=== PATIENT | male | born 1980 | race Caucasian/White ===

== ENCOUNTER 2017-06-06 18:25 | Emergency (ER) | payer BC ==
[2017-06-06] MEDS ORDERED: TORAdol 30 mg Injection IM ONE (19:10)
[2017-06-06] MEDS ORDERED: Norflex 100 MG Tablet PO ONE (19:10)
[2017-06-06] MEDS ORDERED: TORAdol 30 mg Injection ONE (19:15)
--- NOTE | 2017-06-06 19:16 | ERPHSYRPT ---
- History of Present Illness Time Seen by Provider: 06/06/17 19:04 Source: patient Patient Subjective Stated Complaint: PER PATIENT LIFTING HEAVY ITEMS AT WORK YESTERDAY NOW HAS MID LOWER BACK PAIN 4-10 NOW, PMS INTACT, AMBULATED TO ROOM WITH OUT DIFF Triage Nursing Assessment: PER PATIENT LIFTING HEAVY ITEMS AT WORK YESTERDAY NOW HAS MID LOWER BACK PAIN 4-10 NOW, PMS INTACT, AMBULATED TO ROOM WITH OUT DIFF, VSS, NO FEVER, AOX3 Physician History: CC: back pain Hx: 36 y/o patient of Dr Polo with low back pain. Started with helping brother move boxes yesterday. No hx of back problems. Pain radiates to legs and is rather severe. Used APAP and motrin without relief. No hx of CA. No fever or chills. Normal urination. Pain is positional. NKA. 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 Timing/Duration: yesterday Back Pain Location: lumbar spine Severity of Pain-Max: severe Severity of Pain-Current: severe Allergies/Adverse Reactions: No Known Drug Allergies Allergy (Verified 10/29/14 10:33) Home Medications: Hum Insulin NPH/Reg Insulin Hm [Novolin 70-30 100 Unit/ml Vial] 30 units DAILY 10/29/14 [History] Hx Tetanus, Diphtheria Vaccination/Date Given: Yes Hx Influenza Vaccination/Date Given: No Hx Pneumococcal Vaccination/Date Given: No - Review of Systems Constitutional: No Fever, No Chills Eyes: No Symptoms Ears, Nose, & Throat: No Symptoms Respiratory: No Cough, No Dyspnea Cardiac: No Chest Pain Abdominal/Gastrointestinal: No Abdominal Pain, No Nausea, No Vomiting Genitourinary Symptoms: No Dysuria Musculoskeletal: Back Pain Skin: No Rash Neurological: No Focal Weakness, No Headache, No Parasthesia All Other Systems: Reviewed and Negative - Past Medical History Pertinent Past Medical History: Yes Neurological History: No Pertinent History ENT History: No Pertinent History Cardiac History: High Cholesterol, Hypertension Respiratory History: No Pertinent History Endocrine Medical History: Other Musculoskeletal History: No Pertinent History GI Medical History: No Pertinent History History: No Pertinent History Psycho-Social History: No Pertinent History Male Reproductive Disorders: No Pertinent History Other Medical History: NIIDM - Past Surgical History Past Surgical History: No Neuro Surgical History: No Pertinent History Cardiac: No Pertinent History Respiratory: No Pertinent History Gastrointestinal: No Pertinent History Genitourinary: No Pertinent History Musculoskeletal: No Pertinent History Male Surgical History: No Pertinent History - Social History Smoking Status: Current every day smoker How long have you smoked: 10 Exposure to second hand smoke: Yes Drug Use: none Patient Lives Alone: No (FAMILY) Significant Family History: other - Nursing Vital Signs Nursing Vital Signs: Initial Vital Signs Temperature 98.7 F 06/06/17 18:44 Pulse Rate 90 06/06/17 18:44 Respiratory Rate 12 06/06/17 18:44 Blood Pressure 150/90 06/06/17 18:44 O2 Sat by Pulse Oximetry 99 06/06/17 18:44 Pain Scale Pain Intensity [Back] 4 Pain Intensity 4 - Physical Exam General Appearance: alert, obese Eye Exam: PERRL/EOMI Ears, Nose, Throat Exam: normal ENT inspection, moist mucous membranes Neck Exam: normal inspection, non-tender, supple Respiratory Exam: normal breath sounds Cardiovascular Exam: regular rate/rhythm Gastrointestinal Exam: soft, No tenderness, No distention Back Exam: normal inspection, point tenderness (low lumbar) Extremity Exam: normal inspection, normal range of motion Neurologic Exam: alert, oriented x 3, cooperative, sensation nml, No motor deficits Skin Exam: warm, dry, No rash SpO2 Interpretation: normal SpO2: 99 Oxygen Delivery: Room Air - Course Nursing assessment & vital signs reviewed: Yes Ordered Tests: Medication Summary Discontinued Medications Generic Name Dose Route Start Last Admin Trade Name Maite PRN Reason Stop Dose Admin Ketorolac Tromethamine 60 mg 06/06/17 19:10 Toradol 30 Mg Injection IM 06/06/17 19:11 STAT ONE - Progress Progress Note: 06/06/17 19:13 He drove himself here. Will give toradol here and norflex for home. Instr given. Work slip for tomorrow needed. Counseled pt/family regarding: diagnosis, need for follow-up - Departure Time of Disposition: 19:14 Departure Disposition: Home Clinical Impression: Lumbar strain Qualifiers: Encounter type: initial encounter Qualified Code(s): S39.012A - Strain of muscle, fascia and tendon of lower back, initial encounter Condition: Stable Critical Care Time: No Referrals: ROHITH POLO MD [ACTIVE STAFF] - Instructions: Low Back Pain Additional Instructions: BACK INJURY 1. May apply moist heat frequently for relief of pain. Take care not to burn the skin. Do not use heat for more than 30 minutes at a time. 2. Try to sleep on a firm bed, flat on your back. 3. If no improvement is noticed in 2-3 days, follow up with your family physician. 4. If you notice any numbness, tingling, weakness, or problems with your bowel or bladder, you should call your family physician or return to the emergency department. Take norflex tonite at home- no driving or operating machinery. Rx norflex. Rx naproxen twice a day. Follow up this week with Dr Polo. Prescriptions: Naproxen 500 mg [Naprosyn 500 MG] 500 tab PO BID #15 tablet Orphenadrine Citrate 100 mg [Norflex 100 MG Tablet] 1 tab PO BID #10 tab
[2017-06-06 19:39] VITALS: BP 158/91; PULSE 93; O2SAT 97
== END 2017-06-06 19:37 | disposition home or self-care (01) ==
LOC: ED 18:25 → SUPCPDRO 18:25 → ED 19:37
DX: S39.012A Strain of muscle, fascia and tendon of lower back, initial encounter (principal); X50.0XXA Overexertion from strenuous movement or load, initial encounter
CPT/HCPCS: 96372; 99284; J1885; A9270-GY

== ENCOUNTER 2017-11-04 07:53 | Emergency (ER) | payer BC, OTHER, SELFPAY ==
[2017-11-04 08:06] VITALS: O2SAT 97
[2017-11-04] MEDS ORDERED: Sodium Chloride 0.9% 1000 ML 1,000 ML IV STA (08:17)
--- NOTE | 2017-11-04 08:17 | ERPHSYRPT ---
- History of Present Illness Time Seen by Provider: 11/04/17 08:13 Source: patient, family Exam Limitations: no limitations Patient Subjective Stated Complaint: hyperglycemia Triage Nursing Assessment: pt to er c/o hypeglycemia, fsbs this am elevated, states his normal is around 109, states never higher than 120, stopped insulin per Dr. Polo approx 1 year ago Physician History: The patient is a 36-year-old male with his and mother complaining of elevated blood sugars yesterday and today. He was diagnosed with diabetes and placed on insulin in 2013. 2 years ago he no longer needed insulin and was taken off insulin and any medicines that would improve his diabetes. He had been doing fine until yesterday. He states his glucose was in the 400s twice yesterday. He wasn't feeling well yesterday. This morning his glucose was in the 200s and he is feeling better. He is to have lab draw performed tomorrow as ordered by Dr. Polo. He is to see Dr. Polo in November. He's been having upper abdominal aching for several months. His past medical history is significant for diabetes. Timing/Duration: yesterday, improved Severity: moderate Modifying Factors: Improves With: nothing Associated Symptoms: malaise Allergies/Adverse Reactions: No Known Drug Allergies Allergy (Verified 11/04/17 08:07) Hx Tetanus, Diphtheria Vaccination/Date Given: No Hx Influenza Vaccination/Date Given: Yes Hx Pneumococcal Vaccination/Date Given: Yes - Review of Systems Constitutional: No Fever, No Chills Eyes: No Symptoms Ears, Nose, & Throat: No Symptoms Respiratory: No Cough, No Dyspnea Cardiac: No Chest Pain, No Edema, No Syncope Abdominal/Gastrointestinal: No Abdominal Pain, No Nausea, No Vomiting, No Diarrhea Genitourinary Symptoms: No Dysuria Musculoskeletal: No Symptoms Skin: No Rash Neurological: No Dizziness, No Focal Weakness, No Sensory Changes Psychological: No Symptoms Endocrine: No Symptoms Hematologic/Lymphatic: No Symptoms Immunological/Allergic: No Symptoms All Other Systems: Reviewed and Negative - Past Medical History Pertinent Past Medical History: No Neurological History: No Pertinent History ENT History: No Pertinent History Cardiac History: No Pertinent History Respiratory History: No Pertinent History Endocrine Medical History: Diabetes Type II Musculoskeletal History: No Pertinent History GI Medical History: No Pertinent History History: No Pertinent History Psycho-Social History: No Pertinent History Male Reproductive Disorders: No Pertinent History Other Medical History: NIIDM - Past Surgical History Past Surgical History: No Neuro Surgical History: No Pertinent History Cardiac: No Pertinent History Respiratory: No Pertinent History Gastrointestinal: No Pertinent History Genitourinary: No Pertinent History Musculoskeletal: No Pertinent History Male Surgical History: No Pertinent History - Social History Smoking Status: Never smoker How long have you smoked: 10 Exposure to second hand smoke: No Drug Use: none Patient Lives Alone: No Significant Family History: other - Nursing Vital Signs Nursing Vital Signs: Initial Vital Signs Pulse Rate 75 11/04/17 07:59 Respiratory Rate 20 11/04/17 07:59 Blood Pressure 128/87 11/04/17 07:59 O2 Sat by Pulse Oximetry 97 11/04/17 07:59 Pain Scale Pain Intensity 1 - Physical Exam General Appearance: no apparent distress, alert Eye Exam: PERRL/EOMI, eyes nml inspection Ears, Nose, Throat Exam: normal ENT inspection, TMs normal, pharynx normal, moist mucous membranes Neck Exam: normal inspection Respiratory Exam: normal breath sounds, lungs clear, No respiratory distress Cardiovascular Exam: regular rate/rhythm, normal heart sounds, normal peripheral pulses Gastrointestinal/Abdomen Exam: soft, normal bowel sounds, No tenderness, No mass Rectal Exam: not done Back Exam: normal inspection, normal range of motion, No CVA tenderness, No vertebral tenderness Extremity Exam: normal inspection, normal range of motion, pelvis stable Neurologic Exam: alert, oriented x 3, cooperative, normal mood/affect, nml cerebellar function, nml station & gait, sensation nml, No motor deficits Skin Exam: normal color, warm, dry, No rash Lymphatic Exam: No adenopathy SpO2 Interpretation: normal SpO2: 97 Oxygen Delivery: Room Air Ordered Tests: Active Orders 24 hr Category Date Time Status ACCUCHECK [Accucheck] STAT Care 11/04/17 10:44 Active IV Insertion STAT Care 11/04/17 08:17 Active BMP Stat Lab 11/04/17 08:32 Completed CBC W DIFF Stat Lab 11/04/17 08:32 Completed LIPASE Stat Lab 11/04/17 08:32 Completed Lactic Acid Stat Lab 11/04/17 08:38 Completed Manual Differential NC Stat Lab 11/04/17 08:32 Completed UA W/ MICROSCOPIC Stat Lab 11/04/17 09:30 Completed Medication Summary Discontinued Medications Generic Name Dose Route Start Last Admin Trade Name Freq PRN Reason Stop Dose Admin Sodium Chloride 1,000 mls @ 999 mls/hr 11/04/17 08:17 11/04/17 09:00 Sodium Chloride 0.9% 1000 Ml IV 11/04/17 09:17 999 mls/hr .Q1H1M STA Administration Sodium Chloride Confirm 11/04/17 09:00 Sodium Chloride 0.9% 1000 Ml Administered 11/04/17 09:01 Dose 1,000 mls @ ud .ROUTE .K-MED ONE Lab/Rad Data: Laboratory Result Diagrams 11/04/17 08:32 11/04/17 08:32 Laboratory Results 11/04/17 11/04/17 11/04/17 Range/Units 09:30 08:38 08:32 WBC (4.0-10.5) K/mm3 RBC (4.1-5.6) M/mm3 Hgb (12.5-18.0) gm/dl Hct (42-50) % MCV (78-100) fl MCH (26-32) pg MCHC (32-36) g/dl RDW (11.5-14.0) % Plt Count (150-450) K/mm3 MPV (6-9.5) fl Segmented Neutrophils (36.-66.) % Lymphocytes (Manual) (24-44) % Monocytes (Manual) (0.0-12.0) % Eosinophils (Manual) (0.00-3.0) % Differential Comment Toxic Granulation Platelet Estimate (NORMAL) Sodium 133 L (136-145) mEq/L Potassium 4.0 (3.5-5.1) mEq/L Chloride 99 (98-107) mEq/L Carbon Dioxide 25.0 (21-32) mEq/L Anion Gap 12.9 (5-15) MEQ/L BUN 15 (9-20) mg/dL Creatinine 0.75 (0.55-1.30) mg/dl Estimated GFR > 60 ML/MIN Glucose 332 H (70-110) MG/DL Lactic Acid 1.2 (0.4-2.0) Calcium 8.9 (8.5-10.1) mg/dL Lipase 182 (73-393) U/L Ur Collection Type VOID Urine Color YELLOW (YELLOW) Urine Appearance CLEAR (CLEAR) Urine pH 5.0 (5-6) Ur Specific [place] 1.025 (1.005-1.025) Urine Protein 50 (Negative) Urine Ketones NEGATIVE (NEGATIVE) Urine Blood NEGATIVE (0-5) Jg/ul Urine Nitrite NEGATIVE (NEGATIVE) Urine Bilirubin NEGATIVE (NEGATIVE) Urine Urobilinogen NORMAL (0-1) mg/dL Ur Leukocyte Esterase NEGATIVE (NEGATIVE) Ur Epithelial Cells RARE (FEW) /HPF Urine Bacteria RARE (NEGATIVE) /HPF Urine Mucus SLIGHT (NEGATIVE) /HPF Urine Culture Reflexed NO (NO) Urine Glucose 1000 (NEGATIVE) mg/dL Specimen Received 11/04/17 0930 11/04/17 Range/Units 08:32 WBC 7.9 (4.0-10.5) K/mm3 RBC 5.17 (4.1-5.6) M/mm3 Hgb 14.6 (12.5-18.0) gm/dl Hct 43.1 (42-50) % MCV 83.4 (78-100) fl MCH 28.2 (26-32) pg MCHC 33.9 (32-36) g/dl RDW 12.6 (11.5-14.0) % Plt Count 198 (150-450) K/mm3 MPV 12.2 H (6-9.5) fl Segmented Neutrophils 63 (36.-66.) % Lymphocytes (Manual) 30 (24-44) % Monocytes (Manual) 4 (0.0-12.0) % Eosinophils (Manual) 3 (0.00-3.0) % Differential Comment NORMAL Toxic Granulation 1+ Platelet Estimate NORMAL (NORMAL) Sodium (136-145) mEq/L Potassium (3.5-5.1) mEq/L Chloride (98-107) mEq/L Carbon Dioxide (21-32) mEq/L Anion Gap (5-15) MEQ/L BUN (9-20) mg/dL Creatinine (0.55-1.30) mg/dl Estimated GFR ML/MIN Glucose (70-110) MG/DL Lactic Acid (0.4-2.0) Calcium (8.5-10.1) mg/dL Lipase (73-393) U/L Ur Collection Type Urine Color (YELLOW) Urine Appearance (CLEAR) Urine pH (5-6) Ur Specific [place] (1.005-1.025) Urine Protein (Negative) Urine Ketones (NEGATIVE) Urine Blood (0-5) Jg/ul Urine Nitrite (NEGATIVE) Urine Bilirubin (NEGATIVE) Urine Urobilinogen (0-1) mg/dL Ur Leukocyte Esterase (NEGATIVE) Ur Epithelial Cells (FEW) /HPF Urine Bacteria (NEGATIVE) /HPF Urine Mucus (NEGATIVE) /HPF Urine Culture Reflexed (NO) Urine Glucose (NEGATIVE) mg/dL Specimen Received - Progress Progress: improved Progress Note: 11/04/17 11:05 After NS 1 L IV, BG is 278. Counseled pt/family regarding: lab results, diagnosis, need for follow-up - Departure Time of Disposition: 11:06 Departure Disposition: Home Clinical Impression: Elevated random blood glucose level Condition: Stable Critical Care Time: No Referrals: ROHITH POLO MD [Primary Care Provider] - Additional Instructions: You have an elevated blood glucose level. You were given fluids in the ER. After the fluids, your blood glucose was 278. Stay well hydrated. Eat a diabetic diet that includes protein and reduced sugar. Obtain the labs that your doctor had ordered as outpatient and follow-up with your primary medical doctor next week.
[2017-11-04 08:44] LABS: Granulocyte Absolute (ANC) 4.88 (1.4-6.9); Hematocrit 43.1 % (42-50); Hemoglobin 14.6 gm/dl (12.5-18.0); Mean Cell Volume 83.4 fl (78-100); Mean Corpuscular Hemoglobin 28.2 pg (26-32); Mean Corpuscular Hgb Concent. 33.9 g/dl (32-36); Mean Platelet Volume 12.2 fl (6-9.5); Platelet Count 198 K/mm3 (150-450); Red Blood Count 5.17 M/mm3 (4.1-5.6); Red Cell Distribution Width 12.6 % (11.5-14.0); White Blood Count 7.9 K/mm3 (4.0-10.5)
[2017-11-04] MEDS ORDERED: Sodium Chloride 0.9% 1000 ML 1,000 ML ONE (09:00)
[2017-11-04 09:18] LABS: ANION GAP 12.9 MEQ/L (5-15); BLOOD UREA NITROGEN 15 mg/dL (9-20); CHLORIDE 99 mEq/L (98-107); Calcium 8.9 mg/dL (8.5-10.1); Creatinine 1 0.75 mg/dl (0.55-1.30); EST GLOMERULAR FILTRATION RATE > 60 ML/MIN; Glucose 332 MG/DL (70-110); LIPASE 182 U/L (73-393); SODIUM 133 mEq/L (136-145)
[2017-11-04 10:05] LABS: Appearance CLEAR (CLEAR); Bacteria RARE /HPF (NEGATIVE); Bilirubin NEGATIVE (NEGATIVE); Blood NEGATIVE Ery/ul (0-5); Epithelial Cells RARE /HPF (FEW); Glucose 1000 mg/dL (NEGATIVE); Ketones NEGATIVE (NEGATIVE); Leukocyte Esterase NEGATIVE (NEGATIVE); Mucus SLIGHT /HPF (NEGATIVE); Nitrite NEGATIVE (NEGATIVE); Protein,Urine Dip 50 (Negative); Specific Gravity 1.025 (1.005-1.025); Urobilinogen NORMAL mg/dL (0-1)
[2017-11-04 10:17] LABS: Eosinophil 3 % (0.00-3.0); Lymphocytes 30 % (24-44); Monocyte 4 % (0.0-12.0); Neutrophils 63 % (36.-66.); Platelet Estimate NORMAL (NORMAL); Total Cells Counted 100; Toxic Granulation 1+
[2017-11-04 11:33] VITALS: BP 126/80; PULSE 74
== END 2017-11-04 11:33 | disposition home or self-care (01) ==
LOC: ED 07:53
DX: E11.65 Type 2 diabetes mellitus with hyperglycemia (principal)
CPT/HCPCS: 36000; 36415; 80048; 80061; 81000; 82040; 82247; 82962; 83036; 83605; 83690; 83721; 84075; 84155; 84443; 84450; 84460; 85025; 96360; 99284

== ENCOUNTER 2018-03-15 18:26 | Emergency (ER) | payer BC ==
--- NOTE | 2018-03-15 19:37 | ERPHSYRPT ---
- History of Present Illness Time Seen by Provider: 03/15/18 19:18 Source: patient Exam Limitations: no limitations Patient Subjective Stated Complaint: pt here for wellbutrin reaction, he states that hes anxiety and blood pressure got worse so went to yesterday and was taken off of wellbutrin, today she states hes anxiety is worse,hypertension, Triage Nursing Assessment: pt alert, emtional crying off and on, stuttering at times, resp easy, skin w/d/p. Physician History: Pt states he has a long history of Anxiety. He was started on Welbutrin about one week ago, and started experiencing worsening of his symptoms. He has been also c/o intermittent chest pain in the midsternal area for about 3 weeks, now it has been lasting 1 hour, radiates to his back, denies cough, SOB, fever, nausea, vomiting, diaphoresis, other complaints. Timing/Duration: week(s) (1) Severity of Symptoms-Max: moderate Severity of Symptoms-Current: moderate Context related to: other (new medication) Suicidal thoughts: other (senies) Associated Symptoms: anxiety, other (chest pain), No agitated, No confused, No hallucinating, No suicidal ideation Previous symptoms: same symptoms as today Allergies/Adverse Reactions: No Known Drug Allergies Allergy (Verified 03/15/18 19:02) Home Medications: Bupropion HCl [Bupropion HCl Sr] 150 mg DAILY 03/15/18 [History] Hydroxyzine HCl 25 mg [Atarax 25 mg] 25 mg TID PRN 03/15/18 [History] Insulin NPH Hum/Reg Insulin Hm [Relion Novolin 70-30 Vial] 20 units BID [History] Hx Tetanus, Diphtheria Vaccination/Date Given: No Hx Influenza Vaccination/Date Given: Yes Hx Pneumococcal Vaccination/Date Given: No Immunizations Up to Date: Yes - Past Medical History Pertinent Past Medical History: No Neurological History: No Pertinent History ENT History: No Pertinent History Cardiac History: No Pertinent History Respiratory History: No Pertinent History Endocrine Medical History: Diabetes Type II Musculoskeletal History: No Pertinent History GI Medical History: No Pertinent History History: No Pertinent History Psycho-Social History: Anxiety, Panic Disorder Male Reproductive Disorders: No Pertinent History Other Medical History: NIIDM - Past Surgical History Past Surgical History: No Neuro Surgical History: No Pertinent History Cardiac: No Pertinent History Respiratory: No Pertinent History Gastrointestinal: No Pertinent History Genitourinary: No Pertinent History Musculoskeletal: No Pertinent History Male Surgical History: No Pertinent History - Social History Smoking Status: Former smoker How long have you smoked: 10 Exposure to second hand smoke: No Drug Use: none Patient Lives Alone: No Significant Family History: other - Review of Systems Constitutional: No Symptoms Respiratory: No Cough, No Dyspnea Cardiac: Chest Pain, No Edema, No Syncope Psychological: Anxiety, No Alcohol Abuse, No Suicidal Ideations All Other Systems: Reviewed and Negative - Nursing Vital Signs Nursing Vital Signs: Initial Vital Signs Temperature 97.0 F 03/15/18 18:51 Pulse Rate 65 03/15/18 18:51 Respiratory Rate 16 03/15/18 18:51 Blood Pressure 153/92 03/15/18 18:51 O2 Sat by Pulse Oximetry 99 03/15/18 18:51 Pain Scale Pain Intensity 3 - Physical Exam General Appearance: no apparent distress Eyes, Ears, Nose, Throat Exam: normal ENT inspection Neck Exam: normal inspection, non-tender, supple, No carotid bruit, No JVD Respiratory Exam: normal breath sounds, lungs clear, airway intact, No chest tenderness Cardiovascular Exam: regular rate/rhythm, normal heart sounds, normal peripheral pulses, No murmur Gastrointestinal/Abdominal Exam: soft, normal bowel sounds, No tenderness Peripheral Pulses: carotid (R): 3+, carotid (L): 3+ Current Suicidality: denies suicide plan Neurological Exam: alert, normal mood/affect, calm, oriented x 3 Appearance: appropriate appearance, no memory impairment Behavior/Eye Contact/Speech: alert & cooperative, good eye contact, normal speech Thoughts/Hallucinations: normal thought pattern Skin Exam: normal color, warm, dry, No rash SpO2 Interpretation: normal SpO2: 99 Oxygen Delivery: Room Air - Course Nursing assessment & vital signs reviewed: Yes EKG Interpreted by Me: RATE (62/min), Sinus Rhythm, NORMAL AXIS, NORMAL INTERVALS, NORMAL ST-T, Other (22:33 PM: unchanged) - Radiology Exams Chest X-ray Interpretation: Interpreted by me, Negative Ordered Tests: Active Orders 24 hr Category Date Time Status Welfare Administrator STAT Care 03/15/18 19:30 Active EKG-ER Only STAT Care 03/15/18 19:30 Active EKG-ER Only STAT Care 03/15/18 21:47 Active IV Insertion STAT Care 03/15/18 19:30 Active Oxygen-ED Only NASAL CANNULA 2 lpm Care 03/15/18 19:30 Active CHEST 1 VIEW (PORTABLE) Stat Exams 03/15/18 19:30 Taken CBC W DIFF Stat Lab 03/15/18 19:30 Completed CK-Creatinine Phosphokinase Stat Lab 03/15/18 19:45 Completed CMP Stat Lab 03/15/18 19:45 Completed NT PRO BNP Stat Lab 03/15/18 19:45 Completed TROPONIN Q3H Lab 03/15/18 19:45 Completed TROPONIN Q3H Lab 03/15/18 19:45 Completed TROPONIN Q3H Lab 03/16/18 01:30 Ordered TROPONIN Q3H Lab 03/16/18 04:30 Ordered TROPONIN Q3H Lab 03/16/18 07:30 Ordered TSH [TSH, 3RD Generation] Stat Lab 03/15/18 19:45 Completed Urine Triage Profile Stat Lab 03/15/18 20:35 Completed Lab/Rad Data: Laboratory Result Diagrams 03/15/18 19:30 03/15/18 19:45 Laboratory Results 03/15/18 03/15/18 03/15/18 Range/Units 20:35 19:45 19:45 WBC (4.0-10.5) K/mm3 RBC (4.1-5.6) M/mm3 Hgb (12.5-18.0) gm/dl Hct (42-50) % MCV (78-100) fl MCH (26-32) pg MCHC (32-36) g/dl RDW (11.5-14.0) % Plt Count (150-450) K/mm3 MPV (6-9.5) fl Gran % (36.0-66.0) % Eos # (Auto) (0-0.5) Absolute Lymphs (auto) (1.0-4.6) Absolute Monos (auto) (0.0-1.3) Lymphocytes % (24.0-44.0) % Monocytes % (0.0-12.0) % Eosinophils % (0.00-5.0) % Basophils % (0.0-0.4) % Absolute Granulocytes (1.4-6.9) Basophils # (0-0.4) Sodium (137-145) mmol/L Potassium (3.5-5.1) mmol/L Chloride (98-107) mmol/L Carbon Dioxide (22-30) mmol/L Anion Gap (5-15) MEQ/L BUN (9-20) mg/dL Creatinine (0.66-1.25) mg/dL Estimated GFR ML/MIN Glucose (74-106) mg/dL Calcium (8.4-10.2) mg/dL Total Bilirubin (0.2-1.3) mg/dL AST (17-59) U/L ALT (0-50) U/L Alkaline Phosphatase (38-126) U/L Creatine Kinase (55-170) U/L Troponin I < 0.012 (0.000-0.034) ng/mL NT-Pro-B Natriuret Pep (0-450) pg/mL Serum Total Protein (6.3-8.2) g/dL Albumin (3.5-5.0) g/dL TSH 3rd Generation 1.930 (0.47-4.68) mIU/L Urine Opiates Level NEGATIVE (NEGATIVE) Ur Methadone NEGATIVE (NEGATIVE) Urine Barbiturates NEGATIVE (NEGATIVE) Ur Phencyclidine (PCP) NEGATIVE (NEGATIVE) Urine Amphetamine NEGATIVE (NEGATIVE) U Benzodiazepine Level NEGATIVE (NEGATIVE) Urine Cocaine NEGATIVE (NEGATIVE) Urine Marijuana (THC) NEGATIVE (NEGATIVE) 03/15/18 03/15/18 03/15/18 Range/Units 19:45 19:45 19:30 WBC 9.2 (4.0-10.5) K/mm3 RBC 4.94 (4.1-5.6) M/mm3 Hgb 14.4 (12.5-18.0) gm/dl Hct 42.4 (42-50) % MCV 85.8 (78-100) fl MCH 29.1 (26-32) pg MCHC 34.0 (32-36) g/dl RDW 12.6 (11.5-14.0) % Plt Count 207 (150-450) K/mm3 MPV 12.0 H (6-9.5) fl Gran % 61.9 (36.0-66.0) % Eos # (Auto) 0.22 (0-0.5) Absolute Lymphs (auto) 2.55 (1.0-4.6) Absolute Monos (auto) 0.71 (0.0-1.3) Lymphocytes % 27.7 (24.0-44.0) % Monocytes % 7.7 (0.0-12.0) % Eosinophils % 2.4 (0.00-5.0) % Basophils % 0.3 (0.0-0.4) % Absolute Granulocytes 5.69 (1.4-6.9) Basophils # 0.03 (0-0.4) Sodium 142 (137-145) mmol/L Potassium 3.9 (3.5-5.1) mmol/L Chloride 103 (98-107) mmol/L Carbon Dioxide 29 (22-30) mmol/L Anion Gap 14.3 (5-15) MEQ/L BUN 15 (9-20) mg/dL Creatinine 0.93 (0.66-1.25) mg/dL Estimated GFR > 60.0 ML/MIN Glucose 92 (74-106) mg/dL Calcium 9.6 (8.4-10.2) mg/dL Total Bilirubin 0.90 (0.2-1.3) mg/dL AST 24 (17-59) U/L ALT 32 (0-50) U/L Alkaline Phosphatase 38 (38-126) U/L Creatine Kinase 269 H (55-170) U/L Troponin I < 0.012 (0.000-0.034) ng/mL NT-Pro-B Natriuret Pep 41.6 (0-450) pg/mL Serum Total Protein 7.5 (6.3-8.2) g/dL Albumin 4.5 (3.5-5.0) g/dL TSH 3rd Generation (0.47-4.68) mIU/L Urine Opiates Level (NEGATIVE) Ur Methadone (NEGATIVE) Urine Barbiturates (NEGATIVE) Ur Phencyclidine (PCP) (NEGATIVE) Urine Amphetamine (NEGATIVE) U Benzodiazepine Level (NEGATIVE) Urine Cocaine (NEGATIVE) Urine Marijuana (THC) (NEGATIVE) - Progress Progress: improved Progress Note: 03/15/18 22:57 Pt states improved, denies chest pain, his anxiety resolved, no shortness of breath or any distress. I explained our results and discharge him with instructions on PO Ativan 1 mg Q6h PRN for anxiety #10, to follow up with his physician in 2-3 days, return if severe chest pain, SOB, dizziness! Counseled pt/family regarding: lab results, diagnosis, need for follow-up, rad results - Departure Time of Disposition: 22:59 Departure Disposition: Home Clinical Impression: Anxiety Condition: Stable Critical Care Time: No Referrals: ROHITH POLO MD [Primary Care Provider] - Instructions: Anxiety, Adult (DC) Additional Instructions: Rest x 2-3 days, follow up with your physician, return if severe chest pain, shortness of breath, dizziness or severe depression, anxiety!
[2018-03-15 19:57] LABS: BASOPHIL % 0.3 % (0.0-0.4); Basophil (Absolute #) 0.03 (0-0.4); Eosinophil % 2.4 % (0.00-5.0); Eosinophil (Absolute #) 0.22 (0-0.5); Granulocyte Absolute (ANC) 5.69 (1.4-6.9); Granulocytes % 61.9 % (36.0-66.0); Hematocrit 42.4 % (42-50); Hemoglobin 14.4 gm/dl (12.5-18.0); Lymphocyte (Absolute #) 2.55 (1.0-4.6); Lymphocytes % 27.7 % (24.0-44.0); Mean Cell Volume 85.8 fl (78-100); Mean Corpuscular Hemoglobin 29.1 pg (26-32); Monocyte (Absolute #) 0.71 (0.0-1.3); Monocytes % 7.7 % (0.0-12.0); Platelet Count 207 K/mm3 (150-450); Red Blood Count 4.94 M/mm3 (4.1-5.6); Red Cell Distribution Width 12.6 % (11.5-14.0); White Blood Count 9.2 K/mm3 (4.0-10.5)
[2018-03-15 20:13] LABS: ALBUMIN 4.5 g/dL (3.5-5.0); ALKALINE PHOSPHATASE 38 U/L (38-126); ANION GAP 14.3 MEQ/L (5-15); BLOOD UREA NITROGEN 15 mg/dL (9-20); CHLORIDE 103 mmol/L (98-107); CK-Creatinine Phosphokinase 269 U/L (55-170); Calcium 9.6 mg/dL (8.4-10.2); Carbon Dioxide 29 mmol/L (22-30); Creatinine 1 0.93 mg/dL (0.66-1.25); Glucose 92 mg/dL (74-106); Potassium 3.9 mmol/L (3.5-5.1); SGOT/AST 24 U/L (17-59); SGPT/ALT 32 U/L (0-50); SODIUM 142 mmol/L (137-145); Total Protein 7.5 g/dL (6.3-8.2)
[2018-03-15 20:21] LABS: NT PRO BNP 41.6 pg/mL (0-450)
[2018-03-15 20:58] LABS: Amphetamine,Urine NEGATIVE (NEGATIVE); Barbiturate,Urine NEGATIVE (NEGATIVE); Benzodiazepine,Urine NEGATIVE (NEGATIVE); Cocaine,Urine NEGATIVE (NEGATIVE); Methadone,Urine NEGATIVE (NEGATIVE); Opiate,Urine NEGATIVE (NEGATIVE); PCP,Urine NEGATIVE (NEGATIVE); THC,Urine NEGATIVE (NEGATIVE)
[2018-03-15 23:11] VITALS: BP 135/80; PULSE 62; O2SAT 98
--- NOTE | 2018-03-16 14:54 | XRAY ---
Exam: AP portable chest film from 03/15/2018. Comparison: Two-view chest from 2012. Indication: Chest pain. Findings: The transverse heart size appears within normal limits. The colten and mediastinal structures appear unremarkable. The lungs are well expanded. The lung pérez appear clear. No vascular congestion, infiltrate, pneumothorax, or pleural effusion is seen. No acute osseous process is seen. Impression: 1. No acute cardiopulmonary disease is seen.
== END 2018-03-15 23:11 | disposition home or self-care (01) ==
LOC: ED 18:26
DX: F41.9 Anxiety disorder, unspecified (principal); Z79.899 Other long term (current) drug therapy; E11.9 Type 2 diabetes mellitus without complications; Z79.4 Long term (current) use of insulin
CPT/HCPCS: 36000; 36415; 71045; 80053; 80307; 82550; 83880; 84443; 84484; 85025; 93005; 93041; 99284